=== PATIENT | male | born 1975 | race American Indian/Alaskan Native ===

== ENCOUNTER 2018-10-03 23:31 | Emergency (ER) | payer SELFPAY ==
[2018-10-04] MEDS ORDERED: TORADOL IV ONE (00:21)
[2018-10-04] MEDS ORDERED: MORPHINE IV ONE (00:21)
[2018-10-04] MEDS ORDERED: CLEOCIN 600 MG/50 mL 600 MG/50 ML BAG IV ONE (00:21)
[2018-10-04 00:38] LABS: Basophils % (Auto) 0.5 % (0.0-1.8); Eosinophils # (Auto) 0.2 K/mm3 (0.0-0.4); Eosinophils % (Auto) 3.1 % (0.0-4.3); Hemoglobin 13.1 gm/dl (11.8-15.2); Lymphocytes # (Auto) 2.7 K/mm3 (1.2-5.4); Lymphocytes % (Auto) 41.5 % (13.4-35.0); Mean Corpuscular HGB Conc 34 % (32-34); Mean Corpuscular Volume 84 fl (84-94); Monocytes # (Auto) 0.6 K/mm3 (0.0-0.8); Monocytes % (Auto) 8.9 % (0.0-7.3); Platelet Count 199 K/mm3 (140-440); Red Blood Count 4.53 M/mm3 (3.65-5.03); Red Cell Distribution Width 15.7 % (13.2-15.2)
[2018-10-04 00:59] LABS: BUN/Creatinine Ratio 8; Blood Urea Nitrogen 9 mg/dL (9-20); Calcium 9.4 mg/dL (8.4-10.2); Hemolysis Index 15
--- NOTE | 2018-10-04 01:30 | Emergency Department Report ---
ED Extremity Problem HPI - General Chief complaint: Extremity Injury, Lower Stated complaint: FOOT PAIN Time Seen by Provider: 10/04/18 00:11 Source: patient Mode of arrival: Ambulatory Limitations: Physical Limitation - History of Present Illness Initial comments: Patient is a 43-year-old -[place] male who suffered a fractured tib-fib in February 2018. Patient did not seek treatment at that time and the bone healed improperly. Patient states that he had to have surgery in May 2018 with the bone had to be rebroken and reset. Patient was in a walking boot for several weeks after he came out of the cast was then rubs into the right mall eolus region. Patient has open wound in this area and has been having issues with this wound healing. Patient states that earlier today the pain got much worse as did his right lower extremity swelling. Patient denies any fevers chills nausea vomiting. Patient states the leg does feel warmth in the area of the wound. Severity scale (0 -10): 10 - Related Data Previous Rx's Medication Instructions Recorded Last Taken Type Clindamycin [Clindamycin CAP] 300 mg PO Q8H #21 cap 10/04/18 Unknown Rx HYDROcodone/APAP 5-325 [Soldier 1 each PO Q6HR PRN #14 tablet 10/04/18 Unknown Rx 5/325] Ibuprofen [Motrin 800 MG tab] 800 mg PO Q8HR PRN #14 tablet 10/04/18 Unknown Rx Allergies Allergy/AdvReac Type Severity Reaction Status Date / Time No Known Allergies Allergy Verified 10/03/18 23:38 ED Review of Systems ROS: Stated complaint: FOOT PAIN Other details as noted in HPI Comment: All other systems reviewed and negative ED Past Medical Hx - Past Medical History Previous Medical History?: No - Surgical History Past Surgical History?: Yes Additional Surgical History: right tib/fib. right toe - Social History Smoking Status: Never Smoker Substance Use Type: Alcohol - Medications Home Medications: Home Medications Medication Instructions Recorded Confirmed Last Taken Type Clindamycin [Clindamycin CAP] 300 mg PO Q8H #21 cap 10/04/18 Unknown Rx HYDROcodone/APAP 5-325 [Soldier 1 each PO Q6HR PRN #14 tablet 10/04/18 Unknown Rx 5/325] Ibuprofen [Motrin 800 MG tab] 800 mg PO Q8HR PRN #14 tablet 10/04/18 Unknown Rx ED Physical Exam - General Limitations: Physical Limitation General appearance: alert, in no apparent distress - Head Head exam: Present: atraumatic, normocephalic - Eye Eye exam: Present: normal appearance - ENT ENT exam: Present: mucous membranes moist - Neck Neck exam: Present: normal inspection - Respiratory Respiratory exam: Present: normal lung sounds bilaterally. Absent: respiratory distress, wheezes, rales, rhonchi - Cardiovascular Cardiovascular Exam: Present: regular rate, normal rhythm. Absent: systolic murmur, diastolic murmur, rubs, gallop - GI/Abdominal GI/Abdominal exam: Present: soft, normal bowel sounds. Absent: distended, tenderness, guarding, rebound - Rectal Rectal exam: Present: deferred - Extremities Exam Extremities exam: Present: normal inspection - Expanded Lower Extremity Exam Right Lower Leg exam: Present: swelling (some edema is present in the right lower extremity from the mid leg up to the knee) Ankle exam: Present: tenderness, swelling, erythema (lateral malleoli are erythema with a wound just proximal to the sylvester pelvis laterally that is open with good granulation tissue.) Foot/Toe exam: Present: swelling. Absent: tenderness - Back Exam Back exam: Present: normal inspection - Neurological Exam Neurological exam: Present: alert, oriented X3 - Psychiatric Psychiatric exam: Present: normal affect, normal mood - Skin Skin exam: Present: warm, dry, intact, normal color. Absent: rash ED Course Vital Signs 10/03/18 10/04/18 10/04/18 23:36 00:15 00:17 Temperature 97.8 F 98.1 F Pulse Rate 72 65 Respiratory 16 13 13 Rate Blood Pressure 145/84 Blood Pressure 139/85 [Right] O2 Sat by Pulse 99 98 98 Oximetry 10/04/18 10/04/18 00:38 00:39 Temperature Pulse Rate Respiratory 14 14 Rate Blood Pressure Blood Pressure [Right] O2 Sat by Pulse Oximetry ED Medical Decision Making - Lab Data Result diagrams: 10/04/18 00:17 10/04/18 00:17 - Medical Decision Making A shunt does have some edema to his entire right lower extremity from the knee down however he only has tenderness in the area surrounding the wound is on the lateral distal right lower extremity. Patient's white count is within normal limits appears that the patient has a localized cellulitis and wound infection. There is no fluctuance or abscess that appears to need to be drained. Patient will be referred back to wound care patient started on clindamycin here in the emergency department and discharged with the same. Critical care attestation.: If time is entered above; I have spent that time in minutes in the direct care of this critically ill patient, excluding procedure time. ED Disposition Clinical Impression: Wound infection, Cellulitis Disposition: DC- TO HOME OR SELFCARE Is pt being admited?: No Does the pt Need Aspirin: No Condition: Stable Instructions: Cellulitis (ED) [facility]errals: [facility] - 3-5 Days Time of Disposition: 01:31
[2018-10-04 02:30] VITALS: BP 128/83
== END 2018-10-04 02:00 | disposition home or self-care (01) ==
LOC: ED 23:31
DX: L03.115 Cellulitis of right lower limb (principal); T81.40XA Infection following a procedure, unspecified, initial encounter; Z98.890 Other specified postprocedural states; Z79.899 Other long term (current) drug therapy; Y92.89 Other specified places as the place of occurrence of the external cause
CPT/HCPCS: 36415; 80048; 85025; 96365; 96375; 99283; J1885; J2270